=== PATIENT | male | born 1960 | race Caucasian/White ===

== ENCOUNTER 2017-10-17 20:13 | Emergency (ER) | payer OTHER ==
[~2017-10-17] VITALS: Ht 180.3 cm; Wt 125.2 kg
[~2017-10-17 20:13] MED LIST: ECO81 PO; FLO4 PO; LIPI10 PO; MOTRIN800 MG PO; PRI20 PO; ZES10 PO
[2017-10-17 21:06] VITALS: Ht 180.3 cm; Wt 125.2 kg
[2017-10-18 00:31] LABS: PLATELET COUNT 190 x10^3mcL (130-400); RED CELL DISTRIBUTION WIDTH 14.2 % (11.5-14.5)
[2017-10-18 00:37] LABS: CALCIUM 8.4 mg/dL (8.5-10.1); CARBON DIOXIDE 26.5 mmol/L (21-32); CHLORIDE SERUM 102 mmol/L (98-107); GFR1 > 60 mL/min; GLUCOSE SERUM 107 mg/dL (74-106); POTASSIUM SERUM 3.6 mmol/L (3.5-5.1); SODIUM SERUM 138 mmol/L (136-145)
[2017-10-18 00:57] LABS: UA SPECIFIC GRAVITY 1.025 (1.005-1.035); microscopic required? YES; urine erythrocyte TRACE (NEGATIVE)
[2017-10-18 01:02] LABS: ALBUMIN 3.7 g/dL (3.4-5.0); ALKALINE PHOSPHATASE 45 U/L (46-116); ALT/SGPT 40 U/L (16-63); AST/SGOT 37 U/L (15-37); BILIRUBIN TOTAL 0.8 mg/dL (0.20-1.00); FREE T4 0.94 ng/dL (0.76-1.46); TOTAL PROTEIN, SERUM 7.8 g/dL (6.4-8.2)
[2017-10-18 01:07] LABS: AMPHETAMINE QUAL UR NONE DETECTED (See below)
[2017-10-18 03:26] VITALS: BP 162/91
== END 2017-10-18 03:26 | disposition home or self-care (01) ==
LOC: ED 20:13
PROVIDERS: Emergency Medicine
DX: I10 Essential (primary) hypertension (principal); J45.909 Unspecified asthma, uncomplicated; E78.00 Pure hypercholesterolemia, unspecified
CPT/HCPCS: 36415; 83880; 84439